=== PATIENT | female | born 1980 | race Caucasian/White ===

== ENCOUNTER → 2021-05-09 | Day surgery (SDC) | payer OTHER ==
[~2021-05-09] VITALS: Ht 175.3 cm; Wt 104.3 kg
[~2021-05-09] MED LIST: BUPRENORPHINE HC8 MG PO; FLEXERIL5 MG PO; IBUPROFEN800 MG PO; PEPCID AC20 MG PO; SYNTHROID50 MCG PO; TOPROL XL 50 MG50 MG PO
[2021-05-09 08:55] LABS: HCG (URINE) SCREEN NEGATIVE (NEGATIVE)
[2021-05-09 09:04] LABS: BASOPHIL 0.7 % (0-2); EOSINOPHIL 1.6 % (0-5); HCT 41.6 % (37.0-47.0); HGB 13.8 g/dl (12.5-16.0); LYMPHOCYTE 37.9 % (15-48); MCH 31.2 pg (25.0-31.0); MCHC 33.2 g/dL (32.0-36.0); MCV 94.1 fL (78.0-100.0); MONOCYTE 11.7 % (0-12); MPV 10.1 fL (6.0-9.5); NEUTROPHIL 47.9 % (41-80); NRBC 0; PLT 244 K/uL (150-400); RBC 4.42 M/uL (4.20-5.40); RDW 13.3 % (11.5-14.0); WBC 6.1 K/uL (4.0-10.5)
[2021-05-09 09:21] LABS: BUN/CREAT RATIO (CALC) 22.2 RATIO; CREATININE 0.63 mg/dL (0.51-0.95); POTASSIUM 4.7 mmol/L (3.5-5.1)
== END | disposition home or self-care (01) ==
LOC: FAS 08:00
PROVIDERS: Anesthesiology; Oral & Maxillofacial Surgery
DX: K02.9 Dental caries, unspecified (principal); K04.7 Periapical abscess without sinus; E03.9 Hypothyroidism, unspecified; F41.9 Anxiety disorder, unspecified; K21.9 Gastro-esophageal reflux disease without esophagitis; Z79.899 Other long term (current) drug therapy; Z91.041 Radiographic dye allergy status
CPT/HCPCS: D7140; D7210; 36415; 80048; 84703; 85025; J1100; J2250; J2405; J2704; J2710; J3010; J7120